=== PATIENT | male | born 1965 | race Caucasian/White ===

== ENCOUNTER 2017-11-14 17:20 | Observation (INO) | payer SELFPAY ==
[~2017-11-14] VITALS: Ht 180.3 cm; Wt 77.1 kg
[~2017-11-14 17:20] MED LIST: ASPI-612 PO; INSU100I27 SQ; METF10007 PO; METO25TA4 PO; PRAS10TA9 PO
--- NOTE | 2017-11-14 17:43 | PHYS DOC ---
Past Medical History Past Medical History: Diabetes-Type II, [place] Past Surgical History: Cholecystectomy Additional Past Surgical Histo: CARDIAC STENTS PLACED Alcohol Use: None Drug Use: None Adult General Chief Complaint Chief Complaint: CHEST PAIN HPI HPI Patient is a 52 year old [male presenting with chest pain. He had it yesterday morning when he woke up from sleep it went away but came back today around 1 PM it got worse with exertion it is pressure Center of chest radiates to right arm generalized weakness noted mild shortness of breath no vomiting pain is currently resolved after 4 nitroglycerin she took at home. Review of Systems Review of Systems Constitutional: Denies fever or chills [] : Denies dysuria or hematuria [] Musculoskeletal: Denies back pain or joint pain [] Integument: Denies rash or skin lesions [] Neurologic: Denies headache, focal weakness or sensory changes [] Endocrine: Denies polyuria or polydipsia [] All other systems were reviewed and found to be within normal limits, except as documented in this note. Current Medications Current Medications Current Medications Medications (Trade) Dose Ordered Sig/Oswald Start Time Stop Time Status Last Admin Dose Admin Acetaminophen (Tylenol) 650 mg PRN Q6HRS PRN 11/14/17 18:45 Aspirin (Children'S Aspirin) 324 mg 1X ONCE 11/14/17 17:45 11/14/17 17:46 DC 11/14/17 17:41 324 MG Dextrose (Dextrose 50%-Water Syringe) 12.5 gm PRN Q15MIN PRN 11/14/17 18:45 Docusate Sodium (Colace) 100 mg PRN DAILY PRN 11/14/17 18:45 Enoxaparin Sodium (Lovenox 80mg Syringe) 80 mg 1X ONCE 11/14/17 18:45 11/14/17 18:48 DC 11/14/17 19:10 80 MG Fentanyl Citrate (Fentanyl 2ml Vial) 50 mcg PRN Q2HR PRN 11/14/17 18:15 11/15/17 18:14 Labetalol HCl (Normodyne Iv Push) 20 mg PRN Q2HR PRN 11/14/17 18:45 Morphine Sulfate (Morphine Sulfate) 2 mg PRN Q2HR PRN 11/14/17 18:45 Ondansetron HCl (Zofran) 4 mg PRN Q6HRS PRN 11/14/17 18:45 Tramadol HCl (Ultram) 50 mg PRN Q6HRS PRN 11/14/17 18:45 Allergies Allergies Allergies Coded Allergies Type Severity Reaction Last Updated Verified Penicillins Allergy Intermediate 07/17/15 Yes Physical Exam Physical Exam Constitutional: Well developed, well nourished, no acute distress, non-toxic appearance. [] HENT: Normocephalic, atraumatic, bilateral external ears normal, oropharynx moist, no oral exudates, nose normal. [] Eyes: PERRLA, EOMI, conjunctiva normal, no discharge. [] Neck: Normal range of motion, no tenderness, supple, no stridor. [] Cardiovascular:Heart rate regular rhythm, no murmur [] Lungs & Thorax: Bilateral breath sounds clear to auscultation [] Abdomen: Bowel sounds normal, soft, no tenderness, no masses, no pulsatile masses. [] Skin: Warm, dry, no erythema, no rash. [] Back: No tenderness, no CVA tenderness. [] Extremities: No tenderness, no cyanosis, no clubbing, ROM intact, no edema. [] Neurologic: Alert and oriented X 3, normal motor function, normal sensory function, no focal deficits noted. [] Psychologic: Affect normal, judgement normal, mood normal. [] Repeat Physical exam by Dr. Khan: Constitutional: Well developed, well nourished, no acute distress HENT: Normocephalic, atraumatic Eyes: conjunctiva normal, no discharge. [] Cardiovascular: Heart rate regular rhythm, no murmur [] Lungs & Thorax: Bilateral breath sounds clear to auscultation [] Extremities: No tenderness no edema. [] Neurologic: Alert and oriented X 3, normal motor function, normal sensory function, no focal deficits noted. [] Current Patient Data Vital Signs Vital Signs Date Time Temp Pulse Resp B/P (MAP) Pulse Ox O2 Delivery O2 Flow Rate FiO2 11/14/17 19:00 97.6 66 18 140/79 (99) 95 Room Air 97.6 Lab Values Laboratory Tests Test 11/14/17 17:30 11/14/17 17:50 White Blood Count 12.0 x10^3/uL (4.0-11.0) H Red Blood Count 5.80 x10^6/uL (4.30-5.70) H Hemoglobin 18.1 g/dL (13.0-17.5) H Hematocrit 50.8 % (39.0-53.0) Mean Corpuscular Volume 88 fL (79-100) Mean Corpuscular Hemoglobin 31 pg (25-35) Mean Corpuscular Hemoglobin Concent 36 g/dL (31-37) Red Cell Distribution Width 13.6 % (11.5-14.5) Platelet Count 268 x10^3/uL (140-400) Neutrophils (%) (Auto) 55 % (31-73) Lymphocytes (%) (Auto) 36 % (24-48) Monocytes (%) (Auto) 5 % (0-9) Eosinophils (%) (Auto) 2 % (0-3) Basophils (%) (Auto) 1 % (0-3) Neutrophils # (Auto) 6.7 x10^3uL (1.8-7.7) Lymphocytes # (Auto) 4.3 x10^3/uL (1.0-4.8) Monocytes # (Auto) 0.6 x10^3/uL (0.0-1.1) Eosinophils # (Auto) 0.2 x10^3/uL (0.0-0.7) Basophils # (Auto) 0.2 x10^3/uL (0.0-0.2) Prothrombin Time 11.6 SEC (11.7-14.0) L Prothrombin Time INR 0.9 (0.8-1.1) PTT 26 SEC (24-38) Sodium Level 136 mmol/L (136-145) Potassium Level 3.7 mmol/L (3.5-5.1) Chloride Level 99 mmol/L (98-107) Carbon Dioxide Level 28 mmol/L (21-32) Anion Gap 9 (6-14) Blood Urea Nitrogen 10 mg/dL (8-26) Creatinine 1.0 mg/dL (0.7-1.3) Estimated GFR (Cockcroft-Gault) 78.5 BUN/Creatinine Ratio 10 (6-20) Glucose Level 267 mg/dL (70-99) H Calcium Level 10.0 mg/dL (8.5-10.1) Magnesium Level 1.7 mg/dL (1.8-2.4) L Total Bilirubin 0.5 mg/dL (0.2-1.0) Aspartate Amino Transferase (AST) 16 U/L (15-37) Alanine Aminotransferase (ALT) 29 U/L (16-63) Alkaline Phosphatase 44 U/L (46-116) L Troponin I Quantitative < 0.017 ng/mL (0.000-0.055) FS-Lce-X-Type Natriuretic Peptide 38 pg/mL (0-124) Total Protein 7.8 g/dL (6.4-8.2) Albumin 3.5 g/dL (3.4-5.0) Albumin/Globulin Ratio 0.8 (1.0-1.7) L Thyroid Stimulating Hormone (TSH) 4.071 uIU/mL (0.358-3.74) H POC Troponin I 0.00 ng/ml (<0.08) Laboratory Tests 11/14/17 17:30 Laboratory Tests 11/14/17 17:30 EKG EKG [] Interpretation Time: EKG shows a normal sinus rhythm with a rate of 76 no obvious acute ischemic changes noted interpreted by me the time of encounter. Radiology/Procedures Radiology/Procedures PROCEDURE: PORTABLE CHEST 1V Exam performed: One view chest. Indication: CHEST PAIN TODAY Date of Service: 11/14/2017 5:42 PM Comparison: Single view chest from July 16, 2015. Single AP upright portable view chest findings: Cardiomediastinal silhouette is within limits of normal. No acute infiltrates, effusion or pneumothorax is detected. There is a calcified nodule in the left mid lung. The bony structures are normal. Impression: No acute cardiopulmonary process is detected. Electronically signed by: Suzette Gold MD (11/14/2017 5:58 PM) [facility] Course & Med Decision Making Course & Med Decision Making Pertinent Labs and Imaging studies reviewed. (See chart for details) []Patient with known coronary artery disease with a STEMI in 2016 present with concerning story for possibly unstable angina. EKG showed no STEMI patient is chest pain-free on my evaluation the emergency room at 5:30 PM. Aspirin will be given does not sound like a PE or dissection. Patient be admitted to the hospitalist service for further evaluation and treatment. Patient sign out received from Dr. Buck for patient with significant cardiac risk factors. Patient awaiting laboratory results. EKG reviewed. CXR without acute process. Patient seen and evaluated by myself. Initial troponin WNL. Patient requiring admission for further evaluation and treatment. Discussed with Dr. Ravi (hospitalist) who is in agreement with admission. Discussed findings and plan with patient and family, who acknowledge understanding and agreement. Dragon Disclaimer Dragon Disclaimer This electronic medical record was generated, in whole or in part, using a voice recognition dictation system. Departure Departure Impression: Primary Impression: Chest pain Disposition: ADMITTED INPATIENT Admitting Physician: Xie. Villar Condition: STABLE Referrals: NO PCP (PCP) Problem Qualifiers Primary Impression: Chest pain Chest pain type: unspecified Qualified Codes: R07.9 - Chest pain, unspecified EV BUCK MD Nov 14, 2017 17:43 LEO KHAN DO Nov 14, 2017 18:23
[2017-11-14] MEDS ORDERED: ASPIRIN CHEWABLE 81 MG TABLET. PO ONE (17:45)
[2017-11-14 17:47] LABS: BASO # 0.2 x10^3/uL (0.0-0.2); BASO % 1 % (0-3); EOS # 0.2 x10^3/uL (0.0-0.7); EOS % 2 % (0-3); HEMATOCRIT 50.8 % (39.0-53.0); HEMOGLOBIN 18.1 g/dL (13.0-17.5); LYMPH # 4.3 x10^3/uL (1.0-4.8); LYMPH % 36 % (24-48); MEAN CORPUSCULAR HEMOGLOBIN 31 pg (25-35); MEAN CORPUSCULAR HGB CONC 36 g/dL (31-37); MEAN CORPUSCULAR VOLUME 88 fL (79-100); MONO # 0.6 x10^3/uL (0.0-1.1); MONO % 5 % (0-9); NEUT # 6.7 x10^3uL (1.8-7.7); NEUT % 55 % (31-73); PLATELET COUNT 268 x10^3/uL (140-400); RED CELL DISTRIBUTION WIDTH 13.6 % (11.5-14.5)
[2017-11-14 17:54] LABS: PROTHROMBIN TIME PATIENT 11.6 SEC (11.7-14.0)
--- NOTE | 2017-11-14 18:01 | RAD ---
Exam performed: One view chest. Indication: CHEST PAIN TODAY Date of Service: 11/14/2017 5:42 PM Comparison: Single view chest from July 16, 2015. Single AP upright portable view chest findings: Cardiomediastinal silhouette is within limits of normal. No acute infiltrates, effusion or pneumothorax is detected. There is a calcified nodule in the left mid lung. The bony structures are normal. Impression: No acute cardiopulmonary process is detected. Electronically signed by: Suzette Gold MD (11/14/2017 5:58 PM) [facility]
[2017-11-14] MEDS ORDERED: fentaNYL PF VIAL 100 MCG/2 ML VIAL IV PRN (18:15)
[2017-11-14] MEDS ORDERED: ONDANSETRON PF 4 MG/2 ML VIAL. IV PRN ×2 (18:15→18:45)
[2017-11-14] MEDS ORDERED: DEXTROSE 50% 25 GM / 50ML DISP.SYRIN. IV PRN ×2 (18:15→18:45)
[2017-11-14 18:25] LABS: GFR 78.5; POTASSIUM 3.7 mmol/L (3.5-5.1)
[2017-11-14 18:31] LABS: ALBUMIN 3.5 g/dL (3.4-5.0); ALBUMIN/GLOBULIN RATIO 0.8 (1.0-1.7); MAGNESIUM 1.7 mg/dL (1.8-2.4); TOTAL BILIRUBIN 0.5 mg/dL (0.2-1.0); TOTAL PROTEIN 7.8 g/dL (6.4-8.2)
--- NOTE | 2017-11-14 18:39 | PDOC1 ---
History and Physical Date of Admission Date of Admission 11/14/17 Identification/Chief Complaint Chief Complaint chest pain Source Source: Chart review, Patient History of Present Illness History of Present Illness HPI Patient is a 52 year old [male presenting with chest pain x2 ds. \pt had STEMI 2015, 1 stent at [facility] AND [facility]. WAS ON EFFient and asa for 1 year, now only on humalog for dm2, and glucose is high especially in AM . Pt said he woke up with some chest pain and left shoulder pain yesterday am, the chest pain was gone and left shoulder pain cont. 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 Today he was working, felt substernal chest tightness about 1pm, no radiation, but had diaphoresis, sob, no palpitation or N/V. The chapman was moderate, lasting for about 10-20min, a little bit better with nitro but not totally gone and then came to ER. now no chest pain. as per ERP, EKG OK, CANNot been found in computer. first trop neg. Past Medical History Cardiovascular: CAD, HTN Pulmonary: No pertinent hx GI: Constipation Heme/Onc: No pertinent hx Hepatobiliary: No pertinent hx Psych: No pertinent hx Renal/: No pertinent hx Endocrine: Diabetes Past Surgical History Past Surgical History: Cholecystectomy Family History Family History: Heart Disease Social History Smoke: 1 pack per day ALCOHOL: none Current Problem List Problem List Problems Medical Problems: (1) Chest pain Status: Acute Current Medications Current Medications Current Medications Medications (Trade) Dose Ordered Sig/Oswald Start Time Stop Time Status Last Admin Dose Admin Aspirin (Children'S Aspirin) 324 mg 1X ONCE 11/14/17 17:45 11/14/17 17:46 DC 11/14/17 17:41 324 MG Dextrose (Dextrose 50%-Water Syringe) 12.5 gm PRN Q15MIN PRN 11/14/17 18:15 Fentanyl Citrate (Fentanyl 2ml Vial) 50 mcg PRN Q2HR PRN 11/14/17 18:15 11/15/17 18:14 Insulin Human Lispro (HumaLOG) 0-5 UNITS TIDWMEALS 11/15/17 08:00 UNV Ondansetron HCl (Zofran) 4 mg PRN Q8HRS PRN 11/14/17 18:15 11/15/17 18:14 Allergies Allergies Allergies Coded Allergies Type Severity Reaction Last Updated Verified Penicillins Allergy Intermediate 07/17/15 Yes ROS Review of System CONSTITUTIONAL: No fever or chills EYES: No recent changes SKIN: No rash or itching CARDIOVASCULAR: No chest pain, syncope, palpitations, or edema RESPIRATORY: No SOB or cough GASTROINTESTINAL: No nausea, vomiting or abdominal pain NEUROLOGICAL: No headaches or weakness ENDOCRINE: No cold or heat intolerance GENITOURINARY: No urgency or frequency of urination MUSCULOSKELETAL: No back pain or joint pain LYMPHATICS: No enlarged lymph nodes PSYCHIATRIC: No anxiety or depression Physical Exam Physical Exam GEN.: No apparent distress. Alert and oriented. HEENT: Head is normocephalic, atraumatic NECK: Supple. LUNGS: Clear to auscultation. HEART: RRR, S1, S2 present. Peripheral pulses intact ABDOMEN: Soft, nontender. Positive bowel sounds. EXTREMITIES: Without any cyanosis. NEUROLOGIC: Normal speech, normal tone PSYCHIATRIC: Normal affect, normal mood. SKIN: No ulcerations Vitals Vitals Vital Signs Date Time Temp Pulse Resp B/P (MAP) Pulse Ox O2 Delivery O2 Flow Rate FiO2 11/14/17 18:15 66 145/84 (104) 96 Room Air 11/14/17 17:26 98.0 18 98.0 Labs Labs Laboratory Tests Test 11/14/17 17:30 11/14/17 17:50 White Blood Count 12.0 x10^3/uL (4.0-11.0) Red Blood Count 5.80 x10^6/uL (4.30-5.70) Hemoglobin 18.1 g/dL (13.0-17.5) Hematocrit 50.8 % (39.0-53.0) Mean Corpuscular Volume 88 fL (79-100) Mean Corpuscular Hemoglobin 31 pg (25-35) Mean Corpuscular Hemoglobin Concent 36 g/dL (31-37) Red Cell Distribution Width 13.6 % (11.5-14.5) Platelet Count 268 x10^3/uL (140-400) Neutrophils (%) (Auto) 55 % (31-73) Lymphocytes (%) (Auto) 36 % (24-48) Monocytes (%) (Auto) 5 % (0-9) Eosinophils (%) (Auto) 2 % (0-3) Basophils (%) (Auto) 1 % (0-3) Neutrophils # (Auto) 6.7 x10^3uL (1.8-7.7) Lymphocytes # (Auto) 4.3 x10^3/uL (1.0-4.8) Monocytes # (Auto) 0.6 x10^3/uL (0.0-1.1) Eosinophils # (Auto) 0.2 x10^3/uL (0.0-0.7) Basophils # (Auto) 0.2 x10^3/uL (0.0-0.2) Prothrombin Time 11.6 SEC (11.7-14.0) Prothromb Time International Ratio 0.9 (0.8-1.1) Activated Partial Thromboplast Time 26 SEC (24-38) Sodium Level 136 mmol/L (136-145) Potassium Level 3.7 mmol/L (3.5-5.1) Chloride Level 99 mmol/L (98-107) Carbon Dioxide Level 28 mmol/L (21-32) Anion Gap 9 (6-14) Blood Urea Nitrogen 10 mg/dL (8-26) Creatinine 1.0 mg/dL (0.7-1.3) Estimated GFR (Cockcroft-Gault) 78.5 BUN/Creatinine Ratio 10 (6-20) Glucose Level 267 mg/dL (70-99) Calcium Level 10.0 mg/dL (8.5-10.1) Troponin I Quantitative < 0.017 ng/mL (0.000-0.055) KD-Lpc-O-Type Natriuretic Peptide 38 pg/mL (0-124) Bedside Troponin I 0.00 ng/ml (<0.08) Laboratory Tests Test 11/14/17 17:30 11/14/17 17:50 White Blood Count 12.0 x10^3/uL (4.0-11.0) Red Blood Count 5.80 x10^6/uL (4.30-5.70) Hemoglobin 18.1 g/dL (13.0-17.5) Hematocrit 50.8 % (39.0-53.0) Mean Corpuscular Volume 88 fL (79-100) Mean Corpuscular Hemoglobin 31 pg (25-35) Mean Corpuscular Hemoglobin Concent 36 g/dL (31-37) Red Cell Distribution Width 13.6 % (11.5-14.5) Platelet Count 268 x10^3/uL (140-400) Neutrophils (%) (Auto) 55 % (31-73) Lymphocytes (%) (Auto) 36 % (24-48) Monocytes (%) (Auto) 5 % (0-9) Eosinophils (%) (Auto) 2 % (0-3) Basophils (%) (Auto) 1 % (0-3) Neutrophils # (Auto) 6.7 x10^3uL (1.8-7.7) Lymphocytes # (Auto) 4.3 x10^3/uL (1.0-4.8) Monocytes # (Auto) 0.6 x10^3/uL (0.0-1.1) Eosinophils # (Auto) 0.2 x10^3/uL (0.0-0.7) Basophils # (Auto) 0.2 x10^3/uL (0.0-0.2) Prothrombin Time 11.6 SEC (11.7-14.0) Prothromb Time International Ratio 0.9 (0.8-1.1) Activated Partial Thromboplast Time 26 SEC (24-38) Sodium Level 136 mmol/L (136-145) Potassium Level 3.7 mmol/L (3.5-5.1) Chloride Level 99 mmol/L (98-107) Carbon Dioxide Level 28 mmol/L (21-32) Anion Gap 9 (6-14) Blood Urea Nitrogen 10 mg/dL (8-26) Creatinine 1.0 mg/dL (0.7-1.3) Estimated GFR (Cockcroft-Gault) 78.5 BUN/Creatinine Ratio 10 (6-20) Glucose Level 267 mg/dL (70-99) Calcium Level 10.0 mg/dL (8.5-10.1) Troponin I Quantitative < 0.017 ng/mL (0.000-0.055) EK-Mdm-Y-Type Natriuretic Peptide 38 pg/mL (0-124) Bedside Troponin I 0.00 ng/ml (<0.08) VTE Prophylaxis Ordered VTE Prophylaxis Devices: Yes VTE Pharmacological Prophylaxi: Yes Assessment/Plan Assessment/Plan chest pain, need to rule out unstable angina, given pt has strong risk factors including h/o [place], FMH, dm2, smoker, not taking even asa. dm2 uncontrolled HTN? tobaccoism plan: card consult cycle CE check echo, tsh, hba1c, lipid panel lovenox 80mg sq x1 got asa, nitro in ER levemir 10u qhs, ssi for now SNEHAL LAMB MD Nov 14, 2017 18:39
[2017-11-14] MEDS ORDERED: MORPHINE SULFATE 2 MG/ML VIAL. IV PRN (18:45)
[2017-11-14] MEDS ORDERED: LABETALOL 20 MG/4 ML DISP.SYRIN. IVP PRN (18:45)
[2017-11-14] MEDS ORDERED: traMADol 50 MG TABLET PO PRN (18:45)
[2017-11-14] MEDS ORDERED: ACETAMINOPHEN 325 MG TABLET. PO PRN (18:45)
[2017-11-14] MEDS ORDERED: DOCUSATE SODIUM 100 MG CAPSULE. PO PRN (18:45)
[2017-11-14 19:00] VITALS: BP_SYST 139; BP_SYST 140; BP_DIAS 78; BP_DIAS 79
[2017-11-14] MEDS ORDERED: INSU100I11 SQ (20:21)
[2017-11-14] MEDS: INSULIN GLARGINE 300 UNITS/3 ML INSULN.PEN. SQ SCH (21:00)
[2017-11-14] MEDS ORDERED: MAGNESIUM SULFATE 2GM 50 ML IV ONE (21:15)
--- NOTE | 2017-11-14 21:25 | EKG ---
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
[2017-11-14 23:00] VITALS: BP 129/71
[2017-11-15] VITALS (12 sets, daily range): BP systolic 113–139; BP diastolic 64–73
[2017-11-15 01:30] LABS: CALCIUM 9.3 mg/dL (8.5-10.1); GFR 78.5
[2017-11-15 01:33] LABS: CHOLESTEROL/HDL RATIO 6.3
[2017-11-15 04:48] LABS: BASO # 0.1 x10^3/uL (0.0-0.2); BASO % 1 % (0-3); EOS # 0.2 x10^3/uL (0.0-0.7); EOS % 2 % (0-3); HEMATOCRIT 47.9 % (39.0-53.0); HEMOGLOBIN 16.8 g/dL (13.0-17.5); LYMPH # 4.4 x10^3/uL (1.0-4.8); LYMPH % 39 % (24-48); MEAN CORPUSCULAR HEMOGLOBIN 31 pg (25-35); MEAN CORPUSCULAR HGB CONC 35 g/dL (31-37); MEAN CORPUSCULAR VOLUME 88 fL (79-100); MONO # 0.7 x10^3/uL (0.0-1.1); MONO % 6 % (0-9); NEUT # 5.8 x10^3uL (1.8-7.7); NEUT % 52 % (31-73); PLATELET COUNT 249 x10^3/uL (140-400); RED BLOOD COUNT 5.43 x10^6/uL (4.30-5.70); RED CELL DISTRIBUTION WIDTH 13.6 % (11.5-14.5); WHITE BLOOD COUNT 11.2 x10^3/uL (4.0-11.0)
[2017-11-15] MEDS ORDERED: INSULIN LISPRO 300 UNITS/3 ML INSULN.PEN. SQ SCH (08:00)
[2017-11-15] MEDS ORDERED: INFLUENZA VAX SCREEN BY RX. MC ONE (09:00)
[2017-11-15] MEDS: INSULIN LISPRO 300 UNITS/3 ML INSULN.PEN. SQ SCH ×3 (09:22→17:53)
[2017-11-15] MEDS: INSULIN GLARGINE 300 UNITS/3 ML INSULN.PEN. SQ SCH (09:23)
--- NOTE | 2017-11-15 10:06 | PDOC ---
PROGRESS NOTES Chief Complaint Chief Complaint Angina w/ known CAD T2DM History of Present Illness History of Present Illness Mr. Rivera is a 52 y/o male with a PMH of known CAD and T2DM who presented to the ED yesterday w/ angina. He is in NAD at this time. Per labs, troponin negative. Pt seen & examined. Pt alert & oriented; affect appropriate. VSS DW nursing Vitals Vitals Vital Signs Date Time Temp Pulse Resp B/P (MAP) Pulse Ox O2 Delivery O2 Flow Rate FiO2 11/15/17 08:00 Room Air 11/15/17 07:00 97.6 58 20 119/70 (86) 96 97.6 Physical Exam General: Alert, Oriented X3, Cooperative Heart: Regular rate, Normal S1, Normal S2 Lungs: Clear Abdomen: Normal bowel sounds Extremities: No clubbing Skin: No rashes Labs LABS Laboratory Tests Test 11/14/17 17:30 11/14/17 17:50 11/14/17 20:42 11/14/17 21:20 White Blood Count 12.0 x10^3/uL (4.0-11.0) Red Blood Count 5.80 x10^6/uL (4.30-5.70) Hemoglobin 18.1 g/dL (13.0-17.5) Hematocrit 50.8 % (39.0-53.0) Mean Corpuscular Volume 88 fL (79-100) Mean Corpuscular Hemoglobin 31 pg (25-35) Mean Corpuscular Hemoglobin Concent 36 g/dL (31-37) Red Cell Distribution Width 13.6 % (11.5-14.5) Platelet Count 268 x10^3/uL (140-400) Neutrophils (%) (Auto) 55 % (31-73) Lymphocytes (%) (Auto) 36 % (24-48) Monocytes (%) (Auto) 5 % (0-9) Eosinophils (%) (Auto) 2 % (0-3) Basophils (%) (Auto) 1 % (0-3) Neutrophils # (Auto) 6.7 x10^3uL (1.8-7.7) Lymphocytes # (Auto) 4.3 x10^3/uL (1.0-4.8) Monocytes # (Auto) 0.6 x10^3/uL (0.0-1.1) Eosinophils # (Auto) 0.2 x10^3/uL (0.0-0.7) Basophils # (Auto) 0.2 x10^3/uL (0.0-0.2) Prothrombin Time 11.6 SEC (11.7-14.0) Prothromb Time International Ratio 0.9 (0.8-1.1) Activated Partial Thromboplast Time 26 SEC (24-38) Sodium Level 136 mmol/L (136-145) Potassium Level 3.7 mmol/L (3.5-5.1) Chloride Level 99 mmol/L (98-107) Carbon Dioxide Level 28 mmol/L (21-32) Anion Gap 9 (6-14) Blood Urea Nitrogen 10 mg/dL (8-26) Creatinine 1.0 mg/dL (0.7-1.3) Estimated GFR (Cockcroft-Gault) 78.5 BUN/Creatinine Ratio 10 (6-20) Glucose Level 267 mg/dL (70-99) Calcium Level 10.0 mg/dL (8.5-10.1) Magnesium Level 1.7 mg/dL (1.8-2.4) Total Bilirubin 0.5 mg/dL (0.2-1.0) Aspartate Amino Transf (AST/SGOT) 16 U/L (15-37) Alanine Aminotransferase (ALT/SGPT) 29 U/L (16-63) Alkaline Phosphatase 44 U/L (46-116) Troponin I Quantitative < 0.017 ng/mL (0.000-0.055) < 0.017 ng/mL (0.000-0.055) ZT-Wjz-U-Type Natriuretic Peptide 38 pg/mL (0-124) Total Protein 7.8 g/dL (6.4-8.2) Albumin 3.5 g/dL (3.4-5.0) Albumin/Globulin Ratio 0.8 (1.0-1.7) Thyroid Stimulating Hormone (TSH) 4.071 uIU/mL (0.358-3.74) Bedside Troponin I 0.00 ng/ml (<0.08) Glucose (Fingerstick) 167 mg/dL (70-99) Test 11/15/17 00:35 11/15/17 03:00 11/15/17 07:56 Troponin I Quantitative < 0.017 ng/mL (0.000-0.055) White Blood Count 11.2 x10^3/uL (4.0-11.0) Red Blood Count 5.43 x10^6/uL (4.30-5.70) Hemoglobin 16.8 g/dL (13.0-17.5) Hematocrit 47.9 % (39.0-53.0) Mean Corpuscular Volume 88 fL (79-100) Mean Corpuscular Hemoglobin 31 pg (25-35) Mean Corpuscular Hemoglobin Concent 35 g/dL (31-37) Red Cell Distribution Width 13.6 % (11.5-14.5) Platelet Count 249 x10^3/uL (140-400) Neutrophils (%) (Auto) 52 % (31-73) Lymphocytes (%) (Auto) 39 % (24-48) Monocytes (%) (Auto) 6 % (0-9) Eosinophils (%) (Auto) 2 % (0-3) Basophils (%) (Auto) 1 % (0-3) Neutrophils # (Auto) 5.8 x10^3uL (1.8-7.7) Lymphocytes # (Auto) 4.4 x10^3/uL (1.0-4.8) Monocytes # (Auto) 0.7 x10^3/uL (0.0-1.1) Eosinophils # (Auto) 0.2 x10^3/uL (0.0-0.7) Basophils # (Auto) 0.1 x10^3/uL (0.0-0.2) Sodium Level 136 mmol/L (136-145) Potassium Level 4.0 mmol/L (3.5-5.1) Chloride Level 99 mmol/L (98-107) Carbon Dioxide Level 30 mmol/L (21-32) Anion Gap 7 (6-14) Blood Urea Nitrogen 12 mg/dL (8-26) Creatinine 1.0 mg/dL (0.7-1.3) Estimated GFR (Cockcroft-Gault) 78.5 Glucose Level 305 mg/dL (70-99) Calcium Level 9.3 mg/dL (8.5-10.1) Triglycerides Level 319 mg/dL (0-150) Cholesterol Level 201 mg/dL (0-200) LDL Cholesterol, Calculated 105 mg/dL (0-100) VLDL Cholesterol, Calculated 64 mg/dL (0-40) Non-HDL Cholesterol Calculated 169 mg/dL (0-129) HDL Cholesterol 32 mg/dL (40-60) Cholesterol/HDL Ratio 6.3 Glucose (Fingerstick) 232 mg/dL (70-99) Review of Systems Review of Systems Denies angina at this time, denies weakness. Assessment and Plan Assessmemt and Plan Problems Medical Problems: (1) Chest pain Status: Acute Plan: Consult cardiology; appreciate input Cardiac monitoring Serial EKGs Serial cardiac enzymes ASA Continue home medications Comment Review of Relevant I have reviewed the following items poonam (where applicable) has been applied. Labs Laboratory Tests Test 11/14/17 17:30 11/14/17 17:50 11/14/17 20:42 11/14/17 21:20 White Blood Count 12.0 x10^3/uL (4.0-11.0) Red Blood Count 5.80 x10^6/uL (4.30-5.70) Hemoglobin 18.1 g/dL (13.0-17.5) Hematocrit 50.8 % (39.0-53.0) Mean Corpuscular Volume 88 fL (79-100) Mean Corpuscular Hemoglobin 31 pg (25-35) Mean Corpuscular Hemoglobin Concent 36 g/dL (31-37) Red Cell Distribution Width 13.6 % (11.5-14.5) Platelet Count 268 x10^3/uL (140-400) Neutrophils (%) (Auto) 55 % (31-73) Lymphocytes (%) (Auto) 36 % (24-48) Monocytes (%) (Auto) 5 % (0-9) Eosinophils (%) (Auto) 2 % (0-3) Basophils (%) (Auto) 1 % (0-3) Neutrophils # (Auto) 6.7 x10^3uL (1.8-7.7) Lymphocytes # (Auto) 4.3 x10^3/uL (1.0-4.8) Monocytes # (Auto) 0.6 x10^3/uL (0.0-1.1) Eosinophils # (Auto) 0.2 x10^3/uL (0.0-0.7) Basophils # (Auto) 0.2 x10^3/uL (0.0-0.2) Prothrombin Time 11.6 SEC (11.7-14.0) Prothromb Time International Ratio 0.9 (0.8-1.1) Activated Partial Thromboplast Time 26 SEC (24-38) Sodium Level 136 mmol/L (136-145) Potassium Level 3.7 mmol/L (3.5-5.1) Chloride Level 99 mmol/L (98-107) Carbon Dioxide Level 28 mmol/L (21-32) Anion Gap 9 (6-14) Blood Urea Nitrogen 10 mg/dL (8-26) Creatinine 1.0 mg/dL (0.7-1.3) Estimated GFR (Cockcroft-Gault) 78.5 BUN/Creatinine Ratio 10 (6-20) Glucose Level 267 mg/dL (70-99) Calcium Level 10.0 mg/dL (8.5-10.1) Magnesium Level 1.7 mg/dL (1.8-2.4) Total Bilirubin 0.5 mg/dL (0.2-1.0) Aspartate Amino Transf (AST/SGOT) 16 U/L (15-37) Alanine Aminotransferase (ALT/SGPT) 29 U/L (16-63) Alkaline Phosphatase 44 U/L (46-116) Troponin I Quantitative < 0.017 ng/mL (0.000-0.055) < 0.017 ng/mL (0.000-0.055) SA-Udp-Q-Type Natriuretic Peptide 38 pg/mL (0-124) Total Protein 7.8 g/dL (6.4-8.2) Albumin 3.5 g/dL (3.4-5.0) Albumin/Globulin Ratio 0.8 (1.0-1.7) Thyroid Stimulating Hormone (TSH) 4.071 uIU/mL (0.358-3.74) Bedside Troponin I 0.00 ng/ml (<0.08) Glucose (Fingerstick) 167 mg/dL (70-99) Test 11/15/17 00:35 11/15/17 03:00 11/15/17 07:56 Troponin I Quantitative < 0.017 ng/mL (0.000-0.055) White Blood Count 11.2 x10^3/uL (4.0-11.0) Red Blood Count 5.43 x10^6/uL (4.30-5.70) Hemoglobin 16.8 g/dL (13.0-17.5) Hematocrit 47.9 % (39.0-53.0) Mean Corpuscular Volume 88 fL (79-100) Mean Corpuscular Hemoglobin 31 pg (25-35) Mean Corpuscular Hemoglobin Concent 35 g/dL (31-37) Red Cell Distribution Width 13.6 % (11.5-14.5) Platelet Count 249 x10^3/uL (140-400) Neutrophils (%) (Auto) 52 % (31-73) Lymphocytes (%) (Auto) 39 % (24-48) Monocytes (%) (Auto) 6 % (0-9) Eosinophils (%) (Auto) 2 % (0-3) Basophils (%) (Auto) 1 % (0-3) Neutrophils # (Auto) 5.8 x10^3uL (1.8-7.7) Lymphocytes # (Auto) 4.4 x10^3/uL (1.0-4.8) Monocytes # (Auto) 0.7 x10^3/uL (0.0-1.1) Eosinophils # (Auto) 0.2 x10^3/uL (0.0-0.7) Basophils # (Auto) 0.1 x10^3/uL (0.0-0.2) Sodium Level 136 mmol/L (136-145) Potassium Level 4.0 mmol/L (3.5-5.1) Chloride Level 99 mmol/L (98-107) Carbon Dioxide Level 30 mmol/L (21-32) Anion Gap 7 (6-14) Blood Urea Nitrogen 12 mg/dL (8-26) Creatinine 1.0 mg/dL (0.7-1.3) Estimated GFR (Cockcroft-Gault) 78.5 Glucose Level 305 mg/dL (70-99) Calcium Level 9.3 mg/dL (8.5-10.1) Triglycerides Level 319 mg/dL (0-150) Cholesterol Level 201 mg/dL (0-200) LDL Cholesterol, Calculated 105 mg/dL (0-100) VLDL Cholesterol, Calculated 64 mg/dL (0-40) Non-HDL Cholesterol Calculated 169 mg/dL (0-129) HDL Cholesterol 32 mg/dL (40-60) Cholesterol/HDL Ratio 6.3 Glucose (Fingerstick) 232 mg/dL (70-99) Laboratory Tests Test 11/14/17 17:30 11/14/17 17:50 11/14/17 20:42 11/14/17 21:20 White Blood Count 12.0 x10^3/uL (4.0-11.0) Red Blood Count 5.80 x10^6/uL (4.30-5.70) Hemoglobin 18.1 g/dL (13.0-17.5) Hematocrit 50.8 % (39.0-53.0) Mean Corpuscular Volume 88 fL (79-100) Mean Corpuscular Hemoglobin 31 pg (25-35) Mean Corpuscular Hemoglobin Concent 36 g/dL (31-37) Red Cell Distribution Width 13.6 % (11.5-14.5) Platelet Count 268 x10^3/uL (140-400) Neutrophils (%) (Auto) 55 % (31-73) Lymphocytes (%) (Auto) 36 % (24-48) Monocytes (%) (Auto) 5 % (0-9) Eosinophils (%) (Auto) 2 % (0-3) Basophils (%) (Auto) 1 % (0-3) Neutrophils # (Auto) 6.7 x10^3uL (1.8-7.7) Lymphocytes # (Auto) 4.3 x10^3/uL (1.0-4.8) Monocytes # (Auto) 0.6 x10^3/uL (0.0-1.1) Eosinophils # (Auto) 0.2 x10^3/uL (0.0-0.7) Basophils # (Auto) 0.2 x10^3/uL (0.0-0.2) Prothrombin Time 11.6 SEC (11.7-14.0) Prothromb Time International Ratio 0.9 (0.8-1.1) Activated Partial Thromboplast Time 26 SEC (24-38) Sodium Level 136 mmol/L (136-145) Potassium Level 3.7 mmol/L (3.5-5.1) Chloride Level 99 mmol/L (98-107) Carbon Dioxide Level 28 mmol/L (21-32) Anion Gap 9 (6-14) Blood Urea Nitrogen 10 mg/dL (8-26) Creatinine 1.0 mg/dL (0.7-1.3) Estimated GFR (Cockcroft-Gault) 78.5 BUN/Creatinine Ratio 10 (6-20) Glucose Level 267 mg/dL (70-99) Calcium Level 10.0 mg/dL (8.5-10.1) Magnesium Level 1.7 mg/dL (1.8-2.4) Total Bilirubin 0.5 mg/dL (0.2-1.0) Aspartate Amino Transf (AST/SGOT) 16 U/L (15-37) Alanine Aminotransferase (ALT/SGPT) 29 U/L (16-63) Alkaline Phosphatase 44 U/L (46-116) Troponin I Quantitative < 0.017 ng/mL (0.000-0.055) < 0.017 ng/mL (0.000-0.055) BZ-Ocw-R-Type Natriuretic Peptide 38 pg/mL (0-124) Total Protein 7.8 g/dL (6.4-8.2) Albumin 3.5 g/dL (3.4-5.0) Albumin/Globulin Ratio 0.8 (1.0-1.7) Thyroid Stimulating Hormone (TSH) 4.071 uIU/mL (0.358-3.74) Bedside Troponin I 0.00 ng/ml (<0.08) Glucose (Fingerstick) 167 mg/dL (70-99) Test 11/15/17 00:35 11/15/17 03:00 11/15/17 07:56 Troponin I Quantitative < 0.017 ng/mL (0.000-0.055) White Blood Count 11.2 x10^3/uL (4.0-11.0) Red Blood Count 5.43 x10^6/uL (4.30-5.70) Hemoglobin 16.8 g/dL (13.0-17.5) Hematocrit 47.9 % (39.0-53.0) Mean Corpuscular Volume 88 fL (79-100) Mean Corpuscular Hemoglobin 31 pg (25-35) Mean Corpuscular Hemoglobin Concent 35 g/dL (31-37) Red Cell Distribution Width 13.6 % (11.5-14.5) Platelet Count 249 x10^3/uL (140-400) Neutrophils (%) (Auto) 52 % (31-73) Lymphocytes (%) (Auto) 39 % (24-48) Monocytes (%) (Auto) 6 % (0-9) Eosinophils (%) (Auto) 2 % (0-3) Basophils (%) (Auto) 1 % (0-3) Neutrophils # (Auto) 5.8 x10^3uL (1.8-7.7) Lymphocytes # (Auto) 4.4 x10^3/uL (1.0-4.8) Monocytes # (Auto) 0.7 x10^3/uL (0.0-1.1) Eosinophils # (Auto) 0.2 x10^3/uL (0.0-0.7) Basophils # (Auto) 0.1 x10^3/uL (0.0-0.2) Sodium Level 136 mmol/L (136-145) Potassium Level 4.0 mmol/L (3.5-5.1) Chloride Level 99 mmol/L (98-107) Carbon Dioxide Level 30 mmol/L (21-32) Anion Gap 7 (6-14) Blood Urea Nitrogen 12 mg/dL (8-26) Creatinine 1.0 mg/dL (0.7-1.3) Estimated GFR (Cockcroft-Gault) 78.5 Glucose Level 305 mg/dL (70-99) Calcium Level 9.3 mg/dL (8.5-10.1) Triglycerides Level 319 mg/dL (0-150) Cholesterol Level 201 mg/dL (0-200) LDL Cholesterol, Calculated 105 mg/dL (0-100) VLDL Cholesterol, Calculated 64 mg/dL (0-40) Non-HDL Cholesterol Calculated 169 mg/dL (0-129) HDL Cholesterol 32 mg/dL (40-60) Cholesterol/HDL Ratio 6.3 Glucose (Fingerstick) 232 mg/dL (70-99) Medications Current Medications Aspirin (Children'S Aspirin) 324 mg 1X ONCE PO Last administered on 11/14/17at 17:41; Start 11/14/17 at 17:45; Stop 11/14/17 at 17:46; Status DC Ondansetron HCl (Zofran) 4 mg PRN Q8HRS PRN IV NAUSEA/VOMITING; Start 11/14/17 at 18:15; Stop 11/15/17 at 18:14 Fentanyl Citrate (Fentanyl 2ml Vial) 50 mcg PRN Q2HR PRN IV PAIN; Start at 18:15; Stop 11/15/17 at 18:14 Insulin Human Lispro (HumaLOG) 0-5 UNITS TIDWMEALS SQ ; Start 11/15/17 at 08:00 ; Status UNV Dextrose (Dextrose 50%-Water Syringe) 12.5 gm PRN Q15MIN PRN IV SEE COMMENTS; Start 11/14/17 at 18:15; Status Cancel Acetaminophen (Tylenol) 650 mg PRN Q6HRS PRN PO FEVER; Start 11/14/17 at 18:45 Ondansetron HCl (Zofran) 4 mg PRN Q6HRS PRN IV NAUSEA/VOMITING 1ST CHOICE; Start 11/14/17 at 18:45 Morphine Sulfate (Morphine Sulfate) 2 mg PRN Q2HR PRN IV MODERATE TO SEVERE PAIN; Start 11/14/17 at 18:45 Tramadol HCl (Ultram) 50 mg PRN Q6HRS PRN PO MILD TO MODERATE PAIN; Start 11/14 at 18:45 Docusate Sodium (Colace) 100 mg PRN DAILY PRN PO HARD STOOLS; Start 11/14/17 at 18:45 Labetalol HCl (Normodyne Iv Push) 20 mg PRN Q2HR PRN IVP ELEVATED BP, SEE COMMENTS; Start 11/14/17 at 18:45 Enoxaparin Sodium (Lovenox 80mg Syringe) 80 mg 1X ONCE SQ Last administered on 11/14/17at 19:10; Start 11/14/17 at 18:45; Stop 11/14/17 at 18:48; Status DC Insulin Human Lispro (HumaLOG) 0-9 UNITS TIDWMEALS SQ Last administered on 11/15at 09:22; Start 11/15/17 at 08:00 Dextrose (Dextrose 50%-Water Syringe) 12.5 gm PRN Q15MIN PRN IV SEE COMMENTS; Start 11/14/17 at 18:45 Insulin Glargine (Lantus) 10 units QHS SQ Last administered on 11/15/17at 09:23 ; Start 11/14/17 at 21:00 Info (Do NOT chart on this placeholder) 0.1 each 1X ONCE MC ; Start 11/15/17 at 09:00; Stop 11/15/17 at 09:00; Status DC Influenza Virus Vaccine (Afluria Trivalent [id number] Syringe) 0.5 ml ONCE ONCE VAX IM ; Start 11/15/17 at 09:00; Stop 11/15/17 at 09:01; Status DC Magnesium Sulfate 50 ml @ 25 mls/hr 1X ONCE IV Last administered on 11/14/17at 21:29; Start 11/14/17 at 21:15; Stop 11/14/17 at 23:14; Status DC Active Scripts Active Reported Humalog (Insulin Lispro) 100 Unit/1 Ml Insuln.pen 10 Unit SQ TID Vitals/I & O Vital Sign - Last 24 Hours 11/14/17 11/14/17 11/14/17 11/14/17 17:26 17:45 18:15 19:00 Temp 98.0 97.6 98.0 97.6 Pulse 68 58 66 66 Resp 18 18 B/P (MAP) 142/83 (102) 120/69 (86) 145/84 (104) 140/79 (99) Pulse Ox 97 96 96 95 O2 Delivery Room Air Room Air Room Air Room Air 11/14/17 11/14/17 11/15/17 11/15/17 20:23 23:00 03:00 07:00 Temp 98.2 98.2 97.6 98.2 98.2 97.6 Pulse 66 64 58 Resp 16 15 20 B/P (MAP) 129/71 (90) 114/70 (85) 119/70 (86) Pulse Ox 99 97 96 O2 Delivery Room Air Room Air Room Air Room Air 11/15/17 08:00 O2 Delivery Room Air Intake and Output 11/14/17 11/14/17 11/15/17 15:00 23:00 07:00 Intake Total 50 ml 0 ml Balance 50 ml 0 ml BERKLEY REDMOND III DO Nov 15, 2017 10:06
[2017-11-15] MEDS ORDERED: IODIXANOL 320 MG/ML 100 ML VIAL. ONE (10:28)
[2017-11-15] MEDS ORDERED: LIDOCAINE 1% PF 2 ML VIAL. ONE (10:28)
[2017-11-15] MEDS ORDERED: VERAPAMIL 5 MG/2 ML VIAL. IART ONE (10:45)
[2017-11-15] MEDS ORDERED: IODIXANOL 320 MG/ML 100 ML VIAL. IART ONE (10:45)
[2017-11-15] MEDS ORDERED: NITROGLYCERIN 200 MCG/2 ML SYRINGE FOR CATH/VASC LAB. IART ONE (10:45)
[2017-11-15] MEDS ORDERED: fentaNYL PF VIAL 100 MCG/2 ML VIAL IV ONE (10:45)
[2017-11-15] MEDS ORDERED: MIDAZOLAM HCL/PF 2 MG/2 ML VIAL. IV ONE (10:45)
[2017-11-15] MEDS ORDERED: HEPARIN for IV BOLUS 10,000 UNIT/10 ML VIAL. IART ONE (10:45)
[2017-11-15] MEDS ORDERED: LIDOCAINE 1% PF 30 ML VIAL. INJ ONE (10:45)
[2017-11-15] MEDS ORDERED: LIDOCAINE 1% PF 2 ML VIAL. INJ ONE (11:00)
--- NOTE | 2017-11-15 11:00 | PDOC ---
MODERATE SEDATION ASSESSMENT RISKS/ALTERNATIVES Risks/Alternatives Risks and alternatives of this type of sedation and procedure discussed with: RISK/ALTERNATIVES: Patient H & P ON CHART H & P H & P on chart and reviewed for co-morbid conditions and appropriate labs. H&P ON CHART: Yes STATUS PREG STATUS ASSESSED: N/A MEDS/ALLERGIES REVIEWED Meds/Allergies Reviewed Medications and Allergies including time and route of recently administered narcotics and sedatives. MEDS/ALLERGIES REVIEWED: Yes ASA RATING ASA RATING: II AIRWAY ASSESSMENT Airway Assessment Airway patency, oral function limitations, presence of caps, crowns, dentures, partials, and ability to extend neck assessed. AIRWAY ASSESSMENT: Yes MALLAMPATI SCORE MALLAMPATI SCORE: II PRE-SEDATION ASSESSMENT PRE-SEDATION ASSESSMENT: Yes KWESI BILLINGSLEY MD Nov 15, 2017 11:00
--- NOTE | 2017-11-15 11:00 | PDOC2 ---
CONSULT Date of Consult Date of Consult DATE: 11/15/17 TIME: 10:59 Reason for Consult Reason for Consult: Chest pain Referring Physician Referring Physician: Dr. Herrera Identification/Chief Complaint Chief Complaint Chest pain Source Source: Chart review, Patient History of Present Illness Reason for Visit: 52-year-old male with history of coronary artery disease s/p PCI/stents to LAD and LCx in 2016 presented stating that he had an episode of retrosternal chest pressure 8/10 severity relieved with sublingual nitroglycerin yesterday. He had another similar episode of chest pressure while he was walking towards ED in the parking lot. He is currently chest pain-free. He complained of mild associated diaphoresis but denied any orthopnea/PND, palpitations or syncope. He continues to smoke cigarettes and stopped taking all his medications including aspirin. Past Medical History Cardiovascular: CAD, HTN Pulmonary: No pertinent hx GI: Constipation Heme/Onc: No pertinent hx Hepatobiliary: No pertinent hx Psych: No pertinent hx Renal/: No pertinent hx Endocrine: Diabetes Past Surgical History Past Surgical History: Cholecystectomy Family History Family History: Heart Disease Social History 1 pack per day ALCOHOL: none Current Problem List Problem List Problems Medical Problems: (1) Chest pain Status: Acute Current Medications Current Medications Current Medications Aspirin (Children'S Aspirin) 324 mg 1X ONCE PO Last administered on 11/14/17at 17:41; Start 11/14/17 at 17:45; Stop 11/14/17 at 17:46; Status DC Ondansetron HCl (Zofran) 4 mg PRN Q8HRS PRN IV NAUSEA/VOMITING; Start 11/14/17 at 18:15; Stop 11/15/17 at 18:14 Fentanyl Citrate (Fentanyl 2ml Vial) 50 mcg PRN Q2HR PRN IV PAIN; Start at 18:15; Stop 11/15/17 at 18:14 Insulin Human Lispro (HumaLOG) 0-5 UNITS TIDWMEALS SQ ; Start 11/15/17 at 08:00 ; Status UNV Dextrose (Dextrose 50%-Water Syringe) 12.5 gm PRN Q15MIN PRN IV SEE COMMENTS; Start 11/14/17 at 18:15; Status Cancel Acetaminophen (Tylenol) 650 mg PRN Q6HRS PRN PO FEVER; Start 11/14/17 at 18:45 Ondansetron HCl (Zofran) 4 mg PRN Q6HRS PRN IV NAUSEA/VOMITING 1ST CHOICE; Start 11/14/17 at 18:45 Morphine Sulfate (Morphine Sulfate) 2 mg PRN Q2HR PRN IV MODERATE TO SEVERE PAIN; Start 11/14/17 at 18:45 Tramadol HCl (Ultram) 50 mg PRN Q6HRS PRN PO MILD TO MODERATE PAIN; Start 11/14 at 18:45 Docusate Sodium (Colace) 100 mg PRN DAILY PRN PO HARD STOOLS; Start 11/14/17 at 18:45 Labetalol HCl (Normodyne Iv Push) 20 mg PRN Q2HR PRN IVP ELEVATED BP, SEE COMMENTS; Start 11/14/17 at 18:45 Enoxaparin Sodium (Lovenox 80mg Syringe) 80 mg 1X ONCE SQ Last administered on 11/14/17at 19:10; Start 11/14/17 at 18:45; Stop 11/14/17 at 18:48; Status DC Insulin Human Lispro (HumaLOG) 0-9 UNITS TIDWMEALS SQ Last administered on 11/15at 09:22; Start 11/15/17 at 08:00 Dextrose (Dextrose 50%-Water Syringe) 12.5 gm PRN Q15MIN PRN IV SEE COMMENTS; Start 11/14/17 at 18:45 Insulin Glargine (Lantus) 10 units QHS SQ Last administered on 11/15/17at 09:23 ; Start 11/14/17 at 21:00 Info (Do NOT chart on this placeholder) 0.1 each 1X ONCE MC ; Start 11/15/17 at 09:00; Stop 11/15/17 at 09:00; Status DC Influenza Virus Vaccine (Afluria Trivalent [id number] Syringe) 0.5 ml ONCE ONCE VAX IM ; Start 11/15/17 at 09:00; Stop 11/15/17 at 09:01; Status DC Magnesium Sulfate 50 ml @ 25 mls/hr 1X ONCE IV Last administered on 11/14/17at 21:29; Start 11/14/17 at 21:15; Stop 11/14/17 at 23:14; Status DC Iodixanol (Visipaque 320) 100 ml STK-MED ONCE .ROUTE ; Start 11/15/17 at 10:28; Stop 11/15/17 at 10:29; Status DC Lidocaine HCl (Xylocaine-Mpf 1% 2ml Vial) 2 ml STK-MED ONCE .ROUTE ; Start 11/15 at 10:28; Stop 11/15/17 at 10:29; Status DC Heparin Sodium/ Sodium Chloride 500 ml @ As Directed STK-MED ONCE .ROUTE ; Start 11/15/17 at 10:29; Stop 11/15/17 at 10:30; Status DC Nitroglycerin (Nitroglycerin) 200 mcg 1X ONCE IART ; Start 11/15/17 at 10:45; Stop 11/15/17 at 10:46; Status DC Verapamil HCl (Verapamil) 2.5 mg 1X ONCE IART ; Start 11/15/17 at 10:45; Stop 11/15/17 at 10:46; Status DC Heparin Sodium (Porcine) (Heparin Sodium) 2,500 unit 1X ONCE IART ; Start 11/15 at 10:45; Stop 11/15/17 at 10:46; Status DC Heparin Sodium/ Sodium Chloride (HEPARIN for ARTERIAL LINE FLUSH) 1,000 unit 1X ONCE IART ; Start 11/15/17 at 10:45; Stop 11/15/17 at 10:46; Status DC Midazolam HCl (Versed) 2 mg 1X ONCE IV ; Start 11/15/17 at 10:45; Stop at 10:46; Status DC Fentanyl Citrate (Fentanyl 2ml Vial) 100 mcg 1X ONCE IV ; Start 11/15/17 at 10: 45; Stop 11/15/17 at 10:46; Status DC Iodixanol (Visipaque 320) 100 ml 1X ONCE IART ; Start 11/15/17 at 10:45; Stop 11/15/17 at 10:46; Status DC Lidocaine HCl (Xylocaine 1% Pf 30ml Vial) 30 ml 1X ONCE INJ ; Start 11/15/17 at 10:45; Stop 11/15/17 at 10:46; Status Cancel Lidocaine HCl (Xylocaine-Mpf 1% 2ml Vial) 2 ml 1X ONCE INJ ; Start 11/15/17 at 11:00; Stop 11/15/17 at 11:01 Active Scripts Active Reported Humalog (Insulin Lispro) 100 Unit/1 Ml Insuln.pen 10 Unit SQ TID Allergies Allergies: Coded Allergies: Penicillins (Verified Allergy, Intermediate, 07/17/15) ROS PSYCHOLOGICAL ROS: No: Hallucinations Eyes: No Loss of vision HEENT: No: Epistaxis Respiratory: No: Hemoptysis Cardiovascular: yes Chest Pain Gastrointestinal: No Vomiting, No Diarrhea Genitourinary: No Hematuria Neurological: No Seizures Skin: No Rash Physical Exam General: Alert, Oriented X3 HEENT: Atraumatic, PERRLA Lungs: Clear to auscultation Heart: Regular rate Abdomen: Soft, No tenderness Extremities: No edema Psych/Mental Status: Mood NL Vitals VITALS Vital Signs Date Time Temp Pulse Resp B/P (MAP) Pulse Ox O2 Delivery O2 Flow Rate FiO2 11/15/17 08:00 Room Air 11/15/17 07:00 97.6 58 20 119/70 (86) 96 97.6 Labs Labs Laboratory Tests Test 11/14/17 17:30 11/14/17 17:50 11/14/17 20:42 11/14/17 21:20 White Blood Count 12.0 x10^3/uL (4.0-11.0) Red Blood Count 5.80 x10^6/uL (4.30-5.70) Hemoglobin 18.1 g/dL (13.0-17.5) Hematocrit 50.8 % (39.0-53.0) Mean Corpuscular Volume 88 fL (79-100) Mean Corpuscular Hemoglobin 31 pg (25-35) Mean Corpuscular Hemoglobin Concent 36 g/dL (31-37) Red Cell Distribution Width 13.6 % (11.5-14.5) Platelet Count 268 x10^3/uL (140-400) Neutrophils (%) (Auto) 55 % (31-73) Lymphocytes (%) (Auto) 36 % (24-48) Monocytes (%) (Auto) 5 % (0-9) Eosinophils (%) (Auto) 2 % (0-3) Basophils (%) (Auto) 1 % (0-3) Neutrophils # (Auto) 6.7 x10^3uL (1.8-7.7) Lymphocytes # (Auto) 4.3 x10^3/uL (1.0-4.8) Monocytes # (Auto) 0.6 x10^3/uL (0.0-1.1) Eosinophils # (Auto) 0.2 x10^3/uL (0.0-0.7) Basophils # (Auto) 0.2 x10^3/uL (0.0-0.2) Prothrombin Time 11.6 SEC (11.7-14.0) Prothromb Time International Ratio 0.9 (0.8-1.1) Activated Partial Thromboplast Time 26 SEC (24-38) Sodium Level 136 mmol/L (136-145) Potassium Level 3.7 mmol/L (3.5-5.1) Chloride Level 99 mmol/L (98-107) Carbon Dioxide Level 28 mmol/L (21-32) Anion Gap 9 (6-14) Blood Urea Nitrogen 10 mg/dL (8-26) Creatinine 1.0 mg/dL (0.7-1.3) Estimated GFR (Cockcroft-Gault) 78.5 BUN/Creatinine Ratio 10 (6-20) Glucose Level 267 mg/dL (70-99) Calcium Level 10.0 mg/dL (8.5-10.1) Magnesium Level 1.7 mg/dL (1.8-2.4) Total Bilirubin 0.5 mg/dL (0.2-1.0) Aspartate Amino Transf (AST/SGOT) 16 U/L (15-37) Alanine Aminotransferase (ALT/SGPT) 29 U/L (16-63) Alkaline Phosphatase 44 U/L (46-116) Troponin I Quantitative < 0.017 ng/mL (0.000-0.055) < 0.017 ng/mL (0.000-0.055) LS-Xdf-A-Type Natriuretic Peptide 38 pg/mL (0-124) Total Protein 7.8 g/dL (6.4-8.2) Albumin 3.5 g/dL (3.4-5.0) Albumin/Globulin Ratio 0.8 (1.0-1.7) Thyroid Stimulating Hormone (TSH) 4.071 uIU/mL (0.358-3.74) Bedside Troponin I 0.00 ng/ml (<0.08) Glucose (Fingerstick) 167 mg/dL (70-99) Test 11/15/17 00:35 11/15/17 03:00 11/15/17 07:56 Troponin I Quantitative < 0.017 ng/mL (0.000-0.055) White Blood Count 11.2 x10^3/uL (4.0-11.0) Red Blood Count 5.43 x10^6/uL (4.30-5.70) Hemoglobin 16.8 g/dL (13.0-17.5) Hematocrit 47.9 % (39.0-53.0) Mean Corpuscular Volume 88 fL (79-100) Mean Corpuscular Hemoglobin 31 pg (25-35) Mean Corpuscular Hemoglobin Concent 35 g/dL (31-37) Red Cell Distribution Width 13.6 % (11.5-14.5) Platelet Count 249 x10^3/uL (140-400) Neutrophils (%) (Auto) 52 % (31-73) Lymphocytes (%) (Auto) 39 % (24-48) Monocytes (%) (Auto) 6 % (0-9) Eosinophils (%) (Auto) 2 % (0-3) Basophils (%) (Auto) 1 % (0-3) Neutrophils # (Auto) 5.8 x10^3uL (1.8-7.7) Lymphocytes # (Auto) 4.4 x10^3/uL (1.0-4.8) Monocytes # (Auto) 0.7 x10^3/uL (0.0-1.1) Eosinophils # (Auto) 0.2 x10^3/uL (0.0-0.7) Basophils # (Auto) 0.1 x10^3/uL (0.0-0.2) Sodium Level 136 mmol/L (136-145) Potassium Level 4.0 mmol/L (3.5-5.1) Chloride Level 99 mmol/L (98-107) Carbon Dioxide Level 30 mmol/L (21-32) Anion Gap 7 (6-14) Blood Urea Nitrogen 12 mg/dL (8-26) Creatinine 1.0 mg/dL (0.7-1.3) Estimated GFR (Cockcroft-Gault) 78.5 Glucose Level 305 mg/dL (70-99) Calcium Level 9.3 mg/dL (8.5-10.1) Triglycerides Level 319 mg/dL (0-150) Cholesterol Level 201 mg/dL (0-200) LDL Cholesterol, Calculated 105 mg/dL (0-100) VLDL Cholesterol, Calculated 64 mg/dL (0-40) Non-HDL Cholesterol Calculated 169 mg/dL (0-129) HDL Cholesterol 32 mg/dL (40-60) Cholesterol/HDL Ratio 6.3 Glucose (Fingerstick) 232 mg/dL (70-99) Laboratory Tests Test 11/14/17 17:30 11/14/17 17:50 11/14/17 20:42 11/14/17 21:20 White Blood Count 12.0 x10^3/uL (4.0-11.0) Red Blood Count 5.80 x10^6/uL (4.30-5.70) Hemoglobin 18.1 g/dL (13.0-17.5) Hematocrit 50.8 % (39.0-53.0) Mean Corpuscular Volume 88 fL (79-100) Mean Corpuscular Hemoglobin 31 pg (25-35) Mean Corpuscular Hemoglobin Concent 36 g/dL (31-37) Red Cell Distribution Width 13.6 % (11.5-14.5) Platelet Count 268 x10^3/uL (140-400) Neutrophils (%) (Auto) 55 % (31-73) Lymphocytes (%) (Auto) 36 % (24-48) Monocytes (%) (Auto) 5 % (0-9) Eosinophils (%) (Auto) 2 % (0-3) Basophils (%) (Auto) 1 % (0-3) Neutrophils # (Auto) 6.7 x10^3uL (1.8-7.7) Lymphocytes # (Auto) 4.3 x10^3/uL (1.0-4.8) Monocytes # (Auto) 0.6 x10^3/uL (0.0-1.1) Eosinophils # (Auto) 0.2 x10^3/uL (0.0-0.7) Basophils # (Auto) 0.2 x10^3/uL (0.0-0.2) Prothrombin Time 11.6 SEC (11.7-14.0) Prothromb Time International Ratio 0.9 (0.8-1.1) Activated Partial Thromboplast Time 26 SEC (24-38) Sodium Level 136 mmol/L (136-145) Potassium Level 3.7 mmol/L (3.5-5.1) Chloride Level 99 mmol/L (98-107) Carbon Dioxide Level 28 mmol/L (21-32) Anion Gap 9 (6-14) Blood Urea Nitrogen 10 mg/dL (8-26) Creatinine 1.0 mg/dL (0.7-1.3) Estimated GFR (Cockcroft-Gault) 78.5 BUN/Creatinine Ratio 10 (6-20) Glucose Level 267 mg/dL (70-99) Calcium Level 10.0 mg/dL (8.5-10.1) Magnesium Level 1.7 mg/dL (1.8-2.4) Total Bilirubin 0.5 mg/dL (0.2-1.0) Aspartate Amino Transf (AST/SGOT) 16 U/L (15-37) Alanine Aminotransferase (ALT/SGPT) 29 U/L (16-63) Alkaline Phosphatase 44 U/L (46-116) Troponin I Quantitative < 0.017 ng/mL (0.000-0.055) < 0.017 ng/mL (0.000-0.055) JI-Ppi-L-Type Natriuretic Peptide 38 pg/mL (0-124) Total Protein 7.8 g/dL (6.4-8.2) Albumin 3.5 g/dL (3.4-5.0) Albumin/Globulin Ratio 0.8 (1.0-1.7) Thyroid Stimulating Hormone (TSH) 4.071 uIU/mL (0.358-3.74) Bedside Troponin I 0.00 ng/ml (<0.08) Glucose (Fingerstick) 167 mg/dL (70-99) Test 11/15/17 00:35 11/15/17 03:00 11/15/17 07:56 Troponin I Quantitative < 0.017 ng/mL (0.000-0.055) White Blood Count 11.2 x10^3/uL (4.0-11.0) Red Blood Count 5.43 x10^6/uL (4.30-5.70) Hemoglobin 16.8 g/dL (13.0-17.5) Hematocrit 47.9 % (39.0-53.0) Mean Corpuscular Volume 88 fL (79-100) Mean Corpuscular Hemoglobin 31 pg (25-35) Mean Corpuscular Hemoglobin Concent 35 g/dL (31-37) Red Cell Distribution Width 13.6 % (11.5-14.5) Platelet Count 249 x10^3/uL (140-400) Neutrophils (%) (Auto) 52 % (31-73) Lymphocytes (%) (Auto) 39 % (24-48) Monocytes (%) (Auto) 6 % (0-9) Eosinophils (%) (Auto) 2 % (0-3) Basophils (%) (Auto) 1 % (0-3) Neutrophils # (Auto) 5.8 x10^3uL (1.8-7.7) Lymphocytes # (Auto) 4.4 x10^3/uL (1.0-4.8) Monocytes # (Auto) 0.7 x10^3/uL (0.0-1.1) Eosinophils # (Auto) 0.2 x10^3/uL (0.0-0.7) Basophils # (Auto) 0.1 x10^3/uL (0.0-0.2) Sodium Level 136 mmol/L (136-145) Potassium Level 4.0 mmol/L (3.5-5.1) Chloride Level 99 mmol/L (98-107) Carbon Dioxide Level 30 mmol/L (21-32) Anion Gap 7 (6-14) Blood Urea Nitrogen 12 mg/dL (8-26) Creatinine 1.0 mg/dL (0.7-1.3) Estimated GFR (Cockcroft-Gault) 78.5 Glucose Level 305 mg/dL (70-99) Calcium Level 9.3 mg/dL (8.5-10.1) Triglycerides Level 319 mg/dL (0-150) Cholesterol Level 201 mg/dL (0-200) LDL Cholesterol, Calculated 105 mg/dL (0-100) VLDL Cholesterol, Calculated 64 mg/dL (0-40) Non-HDL Cholesterol Calculated 169 mg/dL (0-129) HDL Cholesterol 32 mg/dL (40-60) Cholesterol/HDL Ratio 6.3 Glucose (Fingerstick) 232 mg/dL (70-99) Assessment/Plan Assessment/Plan 1. Chest pain with typical features in a patient with known history of coronary artery disease, concerning for unstable angina. Myocardial infarction has been ruled out. He underwent PCI/stents to LCx and LAD in 2016 and has residual chronic total occlusion of RPDA. We will proceed with cardiac catheterization and possible angioplasty. Risks and benefits were explained and he is agreeable. Check 2-D echo to assess LV systolic function and rule out valvular abnormalities. Start aspirin, beta blockers and statins. 2. Hypertension: Controlled 3. Diabetes mellitus type 2: Treated per IM 4. Tobacco abuse: Advised smoking cessation Thank you for your consultation KWESI BILLINGSLEY MD Nov 15, 2017 11:00
[2017-11-15] MEDS ORDERED: MIDAZOLAM HCL/PF 2 MG/2 ML VIAL. ONE (11:27)
[2017-11-15] MEDS ORDERED: BIVALIRUDIN 250 MG VIAL. IV ONE ×2 (11:39→12:00)
--- NOTE | 2017-11-15 11:51 | CARD ---
MR#: [id number] Date of Study: 11/15/2017 Ordering Physician: SNEHAL LAMB, Referring Physician: SNEHAL LAMB, Tech: Holli Chavez LINA APPROVED REPORT EXAM: Two-dimensional and M-mode echocardiogram with Doppler and color Doppler. Other Information Quality : GoodHR: 52bpm Rhythm : PVC's INDICATION Chest Pain 2D DIMENSIONS IVSd0.8 (0.7-1.1cm)Aortic Root(2D)2.7 (2.0-3.7cm) LVDd5.0 (3.9-5.9cm)LVOT Diameter2.1 (1.8-2.4cm) PWd0.8 (0.7-1.1cm)LVDs3.2 (2.5-4.0cm) FS (%) 35.6 %SV77.3 ml Aortic Valve AoV Peak Carlos.111.0cm/sAoV VTI22.3cm AO Peak GR.4.9mmHgLVOT Peak Carlos.101.0cm/s AO Mean GR.3mmHgAVA (VMAX)3.24cm2 ADITYA (VTI)3.20cm2 Mitral Valve MV E Htjtudoa48.3cm/sMV E Peak Gr.2mmHg MV DECEL [id number] A Xhbjmmpe71.6cm/s MV E Mean Gr.1mmHgE/A Ratio1.4 MV A [id number] Pulmonary Valve PV Peak Focncrsj269.9cm/s Pulmonary Vein S1 Mgpvvefr06.6cm/sD2 Imwmpluc12.6cm/s PVa [id number] LEFT VENTRICLE The left ventricle is normal size. There is normal left ventricular wall thickness. The left ventricu lar systolic function is normal and the ejection fraction is within normal range. The Ejection Fracti on is 55-60%. There is normal LV segmental wall motion. The left ventricular diastolic function and f illing is normal for age. RIGHT VENTRICLE The right ventricle is normal size. There is normal right ventricular wall thickness. The right ventr icular systolic function is normal. ATRIA The left atrium size is normal. The right atrium size is normal. The interatrial septum is intact wit h no evidence for an atrial septal defect or patent foramen ovale as noted on 2-D or Doppler imaging. AORTIC VALVE The aortic valve is trileaflet. The aortic valve is thickened but opens well. Doppler and Color Flow revealed no significant aortic regurgitation. There is no significant aortic valvular stenosis. MITRAL VALVE The mitral valve is normal in structure and function. There is no evidence of mitral valve prolapse. There is no mitral valve stenosis. Doppler and Color Flow revealed no mitral valve regurgitation note d. TRICUSPID VALVE The tricuspid valve is normal in structure and function. Doppler and Color Flow revealed no tricuspid valve regurgitation noted. There is no tricuspid valve prolapse or vegetation. There is no tricuspid valve stenosis. PULMONIC VALVE The pulmonary valve is normal in structure and function. Doppler and Color Flow revealed no pulmonic valvular regurgitation. There is no pulmonic valvular stenosis. GREAT VESSELS The aortic root is normal in size. The ascending aorta is normal in size. PERICARDIAL EFFUSION There is no evidence of significant pericardial effusion. Critical Notification Critical Value: No <Conclusion> The left ventricle is normal size. The left ventricular systolic function is normal and the ejection fraction is within normal range. The Ejection Fraction is 55-60%. There is no significant aortic valvular stenosis. Doppler and Color Flow revealed no significant aortic regurgitation. Doppler and Color Flow revealed no mitral valve regurgitation noted. Doppler and Color Flow revealed no tricuspid valve regurgitation noted. There is no evidence of significant pericardial effusion. Signed by : Kevan Ye MD Electronically Approved : 11/15/2017 11:50:04
[2017-11-15] MEDS ORDERED: ASPIRIN 325 MG TABLET ONE (12:00)
[2017-11-15] MEDS ORDERED: CLOPIDOGREL BISULFATE 75 MG TABLET PO ONE (12:00)
[2017-11-15] MEDS ORDERED: ASPIRIN 325 MG TABLET PO ONE (12:00)
[2017-11-15] MEDS ORDERED: CLOPIDOGREL BISULFATE 75 MG TABLET ONE (12:05)
--- NOTE | 2017-11-15 12:38 | CARD ---
MR#: [id number] Date of Study: 11/15/2017 Ordering Physician: SNEHAL LAMB, Referring Physician: SNEHAL LAMB Tech: RT Kelle (R) APPROVED REPORT Technologist: RT Kelle (R) Nurse: Leonarda Levine RN Procedure(s) performed: 1. Left heart catheterization, selective coronary angiography via right mujica sradial approach 2. Instant wave free ratio (IFR) measurement to left anterior descending artery stenosis 3. Successful PCI/stent placement to the right coronary artery Moderate Sedation: 45 MIN INDICATION The indication(s) include : unstable angina . PROCEDURE NARRATIVE After explaining the risks, benefits and alternative options, informed consent was obtained from sandra ent. Patient was brought to the cardiac Informatica Architect and right wrist was prepped and draped in the usual fashion after confirming a positive modified Robinson's test. Arterial access was obtained in the righ t radial artery and a 6 Thai sheath was inserted. 6 Thai Aries catheter was used to perform tamela ective angiography of the left and right coronary arteries. LVEDP and transaortic gradients remeasure d. Since patient was found to have angiographically borderline significant stenosis involving the lef t anterior descending artery, a decision was made to assess the physiologic significance using Instan t wave free ratio (IFR) measurement. This was crossed with a [place] verrata PressureWire and IFR juli surement was made that came back physiologically insignificant at 0.94. Hence this was not intervene d upon. FINDINGS 1. Hemodynamics: Left ventricular end-diastolic pressure of 18 mmHg. No pullback gradient across th e aortic valve. 2. Coronary angiography: a. The left main coronary artery arose from the left sinus of Valsalva, gave rise to the left anteri or descending and left circumflex arteries and did not show any significant stenosis. b. The left anterior descending artery showed a long widely patent stent in the mid to distal segmen t. The midsegment showed 60% stenosis that was physiologically not significant based on IFR measureme nt of 0.94. The very apical segment showed 90% stenosis that was described in prior cardiac catheteri zation. c. The left circumflex artery showed widely patent stent in the midsegment. Distal to the stent ther e was 50% stenosis noted with moderate to severe diffuse disease beyond that. The obtuse marginal bra nch showed 50% stenosis in the proximal to midsegment. d. The right coronary artery arose from the right sinus of Valsalva and showed 50% stenosis in the p roximal segment and 90% stenosis in the distal segment. The right posterior descending artery showed chronic total occlusion in the midsegment - this was described in prior cardiac catheterization. INTERVENTION The right coronary artery was engaged with a 6 Thai JR4 guide catheter and the stenosis in the dist al segment was crossed with a 0.014 inch Sevence guidewire. This was predilated with a 2.5 x 2 0 mm trek balloon following which this was successfully treated with a 2.5 x 28 mm MultiLink mini vis ion stent. Patient tolerated the procedure well. Hemostasis was achieved using TR band. There were no immediate complications. Conclusion 1. Widely patent previously placed stent in the left anterior descending and left circumflex arterie s. 60% stenosis involving the midsegment of the left anterior descending artery that was physiologica lly insignificant based on IFR measurement of 0.94. The right coronary artery showed previously descr ibed chronic total occlusion of the posterior descending branch and showed a de talya 90% stenosis inv olving the distal segment. 2. Successful PCI/stent placement to the right coronary artery. Recommendations 1. Aspirin 325 mg daily' 2. Plavix 75 mg daily for atleast 6 weeks and preferably one year 3. Cardiovascular risk factor modification including smoking cessation Signed by : Vlad Ronquillo, Electronically Approved : 11/15/2017 12:37:42
[2017-11-15] MEDS ORDERED: NITROGLYCERIN SUBLINGUAL 0.4 MG BOTTLE OF 25. SL PRN (12:45)
[2017-11-15] MEDS: IV 1/2 NORMAL SALINE 1,000 ML IV SCH (13:34)
[2017-11-15] MEDS: METOPROLOL TART IMMED RELEASE 25 MG TABLET. PO SCH (20:48)
[2017-11-15] MEDS ORDERED: ATORVASTATIN CALCIUM 20 MG TABLET PO SCH (21:00)
[2017-11-16] MEDS: IV 1/2 NORMAL SALINE 1,000 ML IV SCH (02:02)
[2017-11-16 03:00] VITALS: BP 121/67
[2017-11-16 03:16] LABS: HEMOGLOBIN A1C 10.3 % (4.8-5.6)
[2017-11-16 07:15] VITALS: BP 147/72
[2017-11-16] MEDS ORDERED: ASPIRIN ENTERIC COATED 325 MG TABLET.DR. PO SCH (08:00)
[2017-11-16] MEDS ORDERED: CLOPIDOGREL BISULFATE 75 MG TABLET PO SCH (08:00)
[2017-11-16] MEDS: METOPROLOL TART IMMED RELEASE 25 MG TABLET. PO SCH (08:37)
[2017-11-16] MEDS: INSULIN LISPRO 300 UNITS/3 ML INSULN.PEN. SQ SCH ×2 (08:42→12:30)
[2017-11-16] MEDS ORDERED: CLOP75TA PO (11:11)
[2017-11-16] MEDS ORDERED: METO25TA4 PO (11:11)
[2017-11-16] MEDS ORDERED: ATOR20TA58 PO (11:11)
[2017-11-16] MEDS ORDERED: ASPI325T11 PO (11:11)
--- NOTE | 2017-11-16 11:19 | PDOC ---
JOEL ALLEN FORMULATION CHEMIST 11/16/17 1119: CARDIO Progress Notes Date and Time Date of Service 11/16/2017 Time of Evaluation 1113 Subjective Subjective: No Chest Pain, No shortness of breath, No Palpitations, No Dizziness Vitals Vitals Vital Signs Date Time Temp Pulse Resp B/P (MAP) Pulse Ox O2 Delivery O2 Flow Rate FiO2 11/16/17 08:37 61 147/72 11/16/17 08:06 Room Air 11/16/17 07:15 97.8 18 94 97.8 Weight Weight [ ] Input and Output Intake and Output Intake and Output 11/16/17 07:00 Intake Total 1910 ml Balance 1910 ml Intake Oral 910 ml IV Total 1000 ml # Voids 4 Laboratory Labs Laboratory Tests Test 11/15/17 12:41 11/15/17 16:42 11/15/17 20:45 11/16/17 07:20 Glucose (Fingerstick) 166 mg/dL (70-99) 201 mg/dL (70-99) 287 mg/dL (70-99) 192 mg/dL (70-99) Physical Exam HEENT: Neck Supple W Full Motion Chest: Symmetric LUNGS: Clear to Auscultation Heart: S1S2, RRR, other (tele: SR) Abdomen: Soft N/T Extremities: No Edema, Other (right radial puncture site C/D/I - pulse 2+; brisk cap refill) Neurology: alert, oriented, follow commands Assessment Assessment 1. unstable angina --s/p BMS to RCA; no chest pain overnight --continue DAPT X 6 weeks and then convert to daily aspirin --agreeable with discharge; f/u in office in 4 weeks 2. HTN --continue BB for management 3. HLD --LDLs = 105 --statin therapy 4. tobacco abuse --cessation advised KWESI BILLINGSLEY MD 11/16/17 1439: CARDIO Progress Notes Assessment Assessment Patient seen and examined. Agree with TYPING SECRETARY's assessment and plan. s/p PCI/BMS to RCA yesterday, presently chest pain-free Continue dual antiplatelet therapy Importance of smoking cessation reemphasized Okay for discharge from cardiac standpoint JOEL ALLEN APRN Nov 16, 2017 11:19 KWESI BILLINGSLEY MD Nov 16, 2017 14:39
[2017-11-16 11:35] VITALS: BP 107/57
--- NOTE | 2017-11-16 16:24 | PDOC3 ---
Discharge Summary IPC Date of Admission: Nov 16, 2017 Discharge Date: Nov 16, 2017 Admitting Diagnosis NSTEMI Final Diagnosis Problems Medical Problems: (1) Chest pain Status: Acute Brief Hospital Course Mr. Rivera is a 52 old M with DM who presented with a antior wall mi and the patient had a BMS placed and the patient responded well to this and was placed on BB, DAPT, and Statins and he tolerated this and was stable for discharge without any concerns. I did discuss lifestyle modification with the patient and he was somwehat agreeable. NAD A&ox3 mmm neck w/o nodes s1 s2 rrr no murmurs ctab soft nttp +bs no c/c/e strength and sensation grossly intact greater than 30 min spent on discharge CONDITION AT DISCHARGE: Stable Scheduled Aspirin (Aspirin Ec), 325 MG PO DAILYWBKFT Atorvastatin Calcium (Atorvastatin Calcium), 40 MG PO QHS Clopidogrel Bisulfate (Clopidogrel), 75 MG PO DAILYWBKFT Insulin Lispro (Humalog), 10 UNIT SQ TID, (Reported) Metoprolol Tartrate (Metoprolol Tartrate), 12.5 MG PO BID BRANDEN CALL MD Nov 16, 2017 16:24
== END 2017-11-16 17:01 | disposition home or self-care (01) ==
LOC: ER 17:20 → 2 SOUTH 19:20
PROVIDERS: ADMIT Internal Medicine; ATTEND Internal Medicine
DX: I25.110 Atherosclerotic heart disease of native coronary artery with unstable angina pectoris (principal); E11.9 Type 2 diabetes mellitus without complications; I10 Essential (primary) hypertension; F17.210 Nicotine dependence, cigarettes, uncomplicated; E78.5 Hyperlipidemia, unspecified; I25.2 Old myocardial infarction; I25.82 Chronic total occlusion of coronary artery; Z79.4 Long term (current) use of insulin; Z95.5 Presence of coronary angioplasty implant and graft; Z98.890 Other specified postprocedural states
CPT/HCPCS: 36415; 71045; 80048; 80053; 80061; 82962; 83036; 83735; 83880; 84443; 84484; 85025; 85610; 85730; 90471; 90756; 92928; 93005; 93306; 93458; 93571; 96365; 96366; 96372; 96375; 99285; 99406; C1725; C1769; C1877; C1892; G0378; J0583; J1644; J1650; J1815; J2250; J3010; J3475; J3490; 99152; 99153; G0379; Q2035